=== PATIENT | male | born 2000 | race Two or more races ===

== ENCOUNTER 2025-08-23 06:28 | Outpatient (CLI) | payer OTHER ==
[2025-08-23 07:34] LABS: Albumin 4.5 g/dL (3.2-4.8); Anion Gap 10 (5-15); BUN/Creatinine Ratio 14.7 (10.0-20.0); Blood Urea Nitrogen 14 mg/dL (9-23); Calcium 9.7 mg/dL (8.7-10.4); Carbon Dioxide 26 mmol/L (20-31); Chloride 106 mmol/L (98-107); Glucose 91 mg/dL (74-106); Potassium 4.3 mmol/L (3.5-5.1); Sodium 142 mmol/L (136-145); Total Protein 7.6 g/dL (5.7-8.2)
[2025-08-23 07:35] LABS: Bilirubin, Total 0.6 mg/dL (0.2-1.0)
[2025-08-23 07:36] LABS: Alanine Aminotransferase 120 U/L (7-40); Alkaline Phosphatase 120 U/L (46-116)
[2025-08-24 14:26] LABS: Hepatitis A Total Antibody Positive (Negative); Hepatitis B Surface Antigen Negative (Negative); Hepatitis C Antibody Negative (Negative)
== END 2025-08-23 17:00 | disposition home or self-care (01) ==
LOC: LAB 06:28
PROVIDERS: ATTEND Nurse Practitioner Family
DX: R74.01 Elevation of levels of liver transaminase levels (principal)
CPT/HCPCS: 36415; 80053; 86704; 86706; 86708; 86803; 87340